=== PATIENT | male | born 1985 | race Caucasian/White ===

== ENCOUNTER → 2019-03-09 12:31 | Outpatient (CLI) | payer BC, SELFPAY ==
[2019-03-09 13:26] LABS: Influenza A - CEPHEID Flu A POSITIVE (NEGATIVE); Influenza B - CEPHEID Flu B NEGATIVE (NEGATIVE)
== END ==
PROVIDERS: Visit Provider Physician Assistant
DX: J32.9 Chronic sinusitis, unspecified (principal)
CPT/HCPCS: 87502